=== PATIENT | male | born 1975 | race Caucasian/White ===

== ENCOUNTER 2021-09-04 22:39 | Emergency (ER) | payer OTHER ==
[~2021-09-04] VITALS: Ht 180.3 cm; Wt 86.2 kg
--- NOTE | 2021-09-04 22:41 | NUR ---
SEJALA FROM HOME. PT OFFLOADED TO LOB.
[2021-09-04 22:42] VITALS: BP 134/82
--- NOTE | 2021-09-05 03:06 | NUR ---
PT CALLED IN LOBBY, NO ANSWER [phone]
== END 2021-09-05 03:28 | disposition left against medical advice (07) ==
LOC: MED 22:39
DX: K13.79 Other lesions of oral mucosa (principal); Z53.21 Procedure and treatment not carried out due to patient leaving prior to being seen by health care provider